=== PATIENT | male | born 1980 | race Caucasian/White ===

== ENCOUNTER 2018-08-23 18:33 | Emergency (ER) | payer SELFPAY ==
[~2018-08-23] VITALS: Ht 180.3 cm; Wt 95.7 kg
[2018-08-23 18:40] VITALS: BP 144/96; Ht 180.3 cm; Wt 95.7 kg
== END 2018-08-23 19:11 | disposition left against medical advice (07) ==
LOC: ED 18:33
DX: Z53.21 Procedure and treatment not carried out due to patient leaving prior to being seen by health care provider (principal)